=== PATIENT | male | born 1950 | race Caucasian/White ===

== ENCOUNTER 2020-07-03 07:03 | Emergency (ER) | payer MEDICARE, OTHER, SELFPAY ==
[2020-07-03] VITALS (7 sets, daily range): BP systolic 140–179; BP diastolic 77–105; PULSE 58–68; RESP 14–24; TEMP 36.5–37.3; O2SAT 95–98; BMI 39.1
--- NOTE | 2020-07-03 | XRR_ITS ---
PROCEDURE INFORMATION: Exam: XR Left Shoulder Exam date and time: 07/03/2020 8:56 AM Age: 70 years old Clinical indication: Abnormal findings; Abnormal imaging study of the limbs; Left shoulder; Additional info: Post reduction TECHNIQUE: Imaging protocol: XR Left shoulder. Views: 2 or more views. COMPARISON: CR XR shoulder LT min 2V* [id number] 07/03/2020 7:40 AM FINDINGS: Bones/joints: The previously seen shoulder dislocation has now been reduced into a normal anatomic position. Mild degenerative changes are present. No fracture is seen. Soft tissues: Normal. XR/XR shoulder LT 1V [id number] IMPRESSION: Satisfactory position of the shoulder joint. No acute abnormality.
--- NOTE | 2020-07-03 07:37 | XRR_ITS ---
PROCEDURE INFORMATION: Exam: XR Left Shoulder Exam date and time: 07/03/2020 8:03 AM Age: 70 years old Clinical indication: Injury or trauma; Fall; Blunt trauma (contusions or hematomas); Shoulder; Left; Additional info: Trauma, deformity TECHNIQUE: Imaging protocol: XR Left shoulder. Views: 2 or more views. COMPARISON: No relevant prior studies available. FINDINGS: Bones/joints: There is anterior dislocation of the left shoulder joint. Chronic degenerative changes are present in the AC joint with narrowing and small osteophyte formation. There are no obvious fractures. Soft tissues: Normal. XR/XR shoulder LT min 2V* [id number] IMPRESSION: Anterior dislocation of the left shoulder joint. Postreduction radiographs are advised.
--- NOTE | 2020-07-03 07:37 | W.ED.UPPEXIN ---
HPI - Extremity Injury (Upper) General: Chief Complaint: Fall Stated Complaint: Fall/Lt arm pain Time Seen by Provider: 07/03/20 07:16 Source: patient Mode of arrival: ambulatory Limitations: no limitations History of Present Illness: HPI narrative: Pt fell on concrete around 0720 this morning, left shoulder pain MD complaint: injury to: left and shoulder Other injuries: none Severity scale (1-10): 6 Context: fall Review of Systems General: Reports: 10 or more systems reviewed and unremarkable except in HPI and below Neuro: Denies: numbness in extremities PFSH ED PFSH: Surgical History History of cholecystectomy Family History Father CAD (coronary artery disease) Mother CAD (coronary artery disease) Diabetes Brother Diabetes Hypertension Sister Diabetes Hypertension Social History Smoking and tobacco status: never smoked Second hand smoke exposure: No Alcohol intake: never Physical Exam Const: COMMON NORMALS: no acute distress, patient oriented x3, no limitations and alert GENERAL APPEARANCE: cooperative and comfortable ORIENTATION/CONSCIOUSNESS: Yes awake, Yes oriented to person, Yes oriented to place and Yes oriented to time HENMT: COMMON NORMALS: normocephalic, atraumatic, external ears normal, EAC's normal, TM's normal bilaterally and Normal external nose present HEAD & SCALP: normal to inspection, normocephalic and atraumatic FACE & SINUS: normal facial exam, sinuses nontender and face symmetric NOSE: Normal external nose present, Normal nares present and No nasal discharge present EXTERNAL EAR: Yes external ears normal EXTERNAL AUDITORY CANAL: EAC's normal TYMPANIC MEMBRANE: TM's normal bilaterally MOUTH: Normal oral and palatal mucosa present, lip normal and tongue normal THROAT: posterior oropharynx normal, tonsils normal and uvula midline Eye: COMMON NORMALS: Equal, round and reactive pupils present, EOMs intact bilaterally and conjunctivae normal GENERAL EYE: appearance normal, both eyes and all related structures and normal light reflex EYELID: eyelids normal CONJUNCTIVA: Yes conjunctivae normal PUPIL: Yes Equal, round and reactive pupils present EOM: Yes EOM abnormal DIRECT OPHTHALMOSCOPY: Yes normal light reflex Neck/C-Spine: COMMON NORMALS: full ROM, no lymphadenopathy, supple, no meningeal signs, no JVD and Thyroid normal GENERAL: Yes normal visual inspection THYROID: Thyroid normal CERVICAL SPINE: Yes cervical ROM normal and Yes normal cervical lordosis Lymph: LYMPHATIC: no lymphadenopathy noted Chest: COMMONS NORMALS: normal inspection of the chest and normal palpation of entire chest wall Resp: COMMON NORMALS: normal respiratory effort, No retractions and clear to auscultation bilaterally AUSCULTATION: clear to auscultation bilaterally Cardio: COMMON NORMALS: no JVD, regular rate, regular rhythm, S1 normal heart sound present, S2 normal heart sound present, No gallops present (Cardio), No clicks present (Cardio), No murmurs present (Cardio), No rub (Cardio) and Peripheral pulses 2+ throughout RATE: regular rate RHYTHM: regular rhythm HEART SOUNDS: S1 normal heart sound present and S2 normal heart sound present PERIPHERAL PULSES: Peripheral pulses 2+ throughout GI: COMMON NORMALS: Normal to inspection, nondistended, normoactive bowel sounds present, Soft to palpation, non-tender and no masses PALPATION: Yes Soft to palpation : COMMON NORMALS: Yes no CVA tenderness BLADDER/KIDNEY EXAM: Yes no CVA tenderness Back/Pelvis: COMMON NORMALS: no CVA tenderness, thoracic and lumbar spine normal to inspection, no thoracic nor lumbar tenderness and thoraco-lumbar ROM normal Extremity: COMMON NORMALS: capillary refill normal, no joint enlargement, no clubbing, cyanosis or edema, no calf tenderness and no pedal edema GENERAL: Yes normal exam except as noted LEFT UPPER EXTREMITY: Yes shoulder joint (obvious deformity ) and Yes clavicle Neuro: COMMON NORMALS: patient oriented x3, moves all extremities, no focal motor deficits, no sensory deficits noted and gait normal SENSORIUM/ORIENTATION: Yes alert, Yes oriented to person, Yes oriented to place and Yes oriented to time MENINGEAL SIGNS: Yes no meningeal signs Psych: COMMON NORMALS: mental status grossly normal, Normal thought process present, cooperative, normal affect, speech normal and activity/motor behavior normal SPEECH: Yes normal speech THOUGHT PROCESS: Normal thought process present Skin: COMMON NORMALS: no rashes or lesions noted, no wounds and turgor normal GENERAL SKIN EXAM: no rashes or lesions noted and turgor normal Course ED course: Pt sustained a fall this morning onto concrete, notable left shoulder deformity upon examination. XRAYs ordered and reduction considered at this time. Will consult with my attending Dr. Clement once radiologic imaging collected. Discharge Plan Discharge Prescriptions: No Action betamethasone valerate 0.1 % cream 1 applic TOPICAL DAILY PRNRF: 0 fluoxetine 40 mg capsule 40 mg PO DAILY RF: 0 hydrochlorothiazide 12.5 mg capsule 12.5 mg PO DAILY RF: 0 ibuprofen 800 mg tablet 800 mg PO Q8H RF: 0 trazodone 150 mg tablet 150 mg PO DAILY RF: 0 Centrum Silver Ultra Men's 300-600-300 mcg tablet 1 tab PO DAILY RF: 0 vitamin A-vit C-vit E-zinc-Cu Tablet 2 tab PO DAILY RF: 0 hydrocortisone 2.5 % cream 1 applic TOPICAL BID PRN (Reason: skin irritation) Qty: 30 RF: 2 Coding Level of Care Code ED Knife Finisher for Patricio Anthony
[2020-07-03] MEDS: ondansetron 2 mg/ML SDV 2 mL 4 MG IVP (08:10)
[2020-07-03] MEDS: morphine 4 mg/mL SDV 1 mL IVP ×2 (08:10→08:33)
[2020-07-03] MEDS: fentaNYL 50 mcg/mL INJ 2mL 100 MCG IVP (08:33)
--- NOTE | 2020-07-03 09:02 | PC.NURSE ---
Consent signed by , pt unable to sign. Dr Clement, respiratory, and RN at bedside. IV established in right hand. 0837 Fentanyl 50 mcgs followed with 10cc flush 0838 Etomidate 10 mg followed with 10cc flush 0839 Etomidate 10 mg followed with 10cc flush 0840 Fentanyl 25 mcgs followed with 100 flush 0841 Etomidate finished med with 10 cc flush 0845 Fentanyl 25 mcg followed with 10 cc flush. 0854 pt waken with stimulation. Shoulder immobilize placed Tolerated procedure well.
--- NOTE | 2020-07-03 12:09 | DCPLANNER ---
thoroughbred horse farm manager had message to schedule follow up with ortho. thoroughbred horse farm manager called ortho and spoke to Malgorzata, gave her patient's information. Information will be printed and reviewed and they will contact patient with appointment information.
--- NOTE | 2020-07-04 09:24 | DCPLANNER ---
Patient had a follow up appointment scheduled for 07.04.20 with ortho - patient did attend appointment.
== END 2020-07-03 09:59 | disposition home or self-care (01) ==
PROVIDERS: Emergency Provider Family Medicine
DX: M79.602 Pain in left arm (principal)
CPT/HCPCS: 12345; 73020; 73030; 96374; 96375; 99283; 99284; J2270; J2405; J3010; J3490

== ENCOUNTER → 2020-07-04 09:45 | Outpatient (BNVA) | payer MEDICARE, OTHER, SELFPAY | PROVIDERS: Referring Provider Nurse Practitioner Family; Visit Provider Specialist | DX: S43.016A Anterior dislocation of unspecified humerus, initial encounter (principal); X58.XXXA Exposure to other specified factors, initial encounter; M19.012 Primary osteoarthritis, left shoulder | CPT/HCPCS: 73030 ==

== ENCOUNTER → 2020-07-18 09:48 | Outpatient (BNVA) | payer MEDICARE, OTHER, SELFPAY | PROVIDERS: Visit Provider Specialist | DX: S43.015D Anterior dislocation of left humerus, subsequent encounter (principal); W00.0XXD Fall on same level due to ice and snow, subsequent encounter | CPT/HCPCS: 73030 ==

== ENCOUNTER 2020-07-26 08:22 | Outpatient (RCR) | payer MEDICARE, OTHER, SELFPAY | END 2020-08-22 23:59 | disposition home or self-care (01) | LOC: SPT 08:22 | PROVIDERS: PCP Family Medicine; Referring Provider Specialist; Visit Provider Specialist | DX: S43.085D Other dislocation of left shoulder joint, subsequent encounter (principal); X58.XXXD Exposure to other specified factors, subsequent encounter; M25.512 Pain in left shoulder | CPT/HCPCS: 97110; 97161 ==

== ENCOUNTER 2020-08-23 06:00 | Outpatient (RCR) | payer MEDICARE, OTHER, SELFPAY | END 2020-09-03 23:00 | disposition home or self-care (01) | LOC: SPT 06:00 | PROVIDERS: PCP Family Medicine; Referring Provider Specialist; Visit Provider Specialist | DX: S43.085D Other dislocation of left shoulder joint, subsequent encounter (principal); X58.XXXD Exposure to other specified factors, subsequent encounter | CPT/HCPCS: 97110 ==

== ENCOUNTER → 2021-06-20 12:47 | Outpatient (BNVA) | payer MEDICARE, OTHER, SELFPAY | PROVIDERS: PCP Family Medicine; Visit Provider Nurse Practitioner | DX: Z20.822 Contact with and (suspected) exposure to COVID-19 (principal) | CPT/HCPCS: 87635 ==

== ENCOUNTER 2021-07-05 07:58 | Outpatient (CLI) | payer MEDICARE, OTHER, SELFPAY ==
--- NOTE | 2021-07-05 08:15 | US_ITS ---
WS: [id number] Complete ABDOMINAL ULTRASOUND HISTORY: ELEVATED LIVER ENZYMES COMPARISON: None available. Liver: 15.3 cm in length. Normal size liver. Mild coarsened echotexture. Suspect very mild changes of hepatic steatosis. No bile duct dilatation or mass. Portal Vein: Normal hepatopetal flow with monophasic waveform. Gallbladder: Prior cholecystectomy. Pancreas: Normal size and echogenicity. CBD: 0.2 cm. Right kidney: 10.5 cm x 6.8 cm x 6.3 cm. No mass, cortical thickening or hydronephrosis. Left kidney: 10.9 cm x 6.1 cm x 6.0 cm. Normal size kidney. Cyst from the inferior pole measures 3.8 x 2.4 x 3.1 cm. Spleen: Normal size and echogenicity. Abdominal aorta and IVC are within normal limits. No ascites. US/US abdomen complete* [id number] IMPRESSION: 1. Prior cholecystectomy. No bile duct dilatation. 2. Normal size liver with mild changes of hepatic steatosis. 3. LEFT renal cyst.
== END 2021-07-05 07:59 | disposition home or self-care (01) ==
LOC: RAD 08:08
PROVIDERS: PCP Family Medicine; Visit Provider Family Medicine
DX: R74.8 Abnormal levels of other serum enzymes (principal); Z90.49 Acquired absence of other specified parts of digestive tract; N28.1 Cyst of kidney, acquired
CPT/HCPCS: 76700